=== PATIENT | female | born 1985 | race Hispanic/Latino ===

== ENCOUNTER 2018-03-02 09:11 | Day surgery (SDC) | payer OTHER ==
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
--- OUTSIDE RECORDS SUMMARY | 2018-03-02 09:14 | XMS REPORT | Summary of Care ---
:1985 Author Encounter ANNABELLE Greer(RADHA) [id number] Date(s): 08/07/14 - 08/08/14 [facility] [address] [address] [address]- Discharge Diagnosis: Abdominal pain Discharge Diagnosis: Rectal bleeding Discharge Diagnosis: Constipation Discharge Disposition: Home Physician Attending: Fidel Graff DO Vital Signs Most recent to oldest [Reference Range]: 1 2 Height 149.86 cm (08/07/14 8:00 PM) Temperature Oral [96.4-99.1 DegF] 99.0 DegF (08/07/14 8:00 PM) Blood Pressure [90-140/60-90 mmHg] 129/82 mmHg 152/94 mmHg (08/07/14 11:07 PM) *HI* (08/07/14 8:00 PM) Respiratory Rate [14-20 BRMIN] 18 BRMIN 18 BRMIN (08/07/14 11:07 PM) (08/07/14 8:00 PM) Peripheral Pulse Rate [60-100 bpm] 84 bpm 93 bpm (08/07/14 11:07 PM) (08/07/14 8:00 PM) Weight 55.909 kg (08/07/14 8:00 PM) Body Mass Index 24.89 m2 (08/07/14 8:00 PM) Problem List Condition Effective Dates Status Health Status Informant Constipation(Confirmed) Resolved Allergies, Adverse Reactions, Alerts Substance Reaction Severity Status NKDA Active Medications Colace 100 mg oral capsule 100 mg=1 cap, PO, BID, PRN Constipation, # 20 cap, 0 Refill(s) Start Date: 08/08/14 Status: Ordereddocusate 283 mg rectal enema 283 mg=1 ea, [place], Bedtime, # 1 box, 0 Refill(s) Start Date: 08/08/14 Status: OrderedDulcolax Laxative 5 mg, PO, Daily, 0 Refill(s) Start Date: 08/07/14 Status: Orderedmagnesium citrate 300 mL, Route: PO, Dosing Weight 55.909, kg, ONCE, Start date: 08/07/14 21:35:00 , Stop date: 08/07/14 21:35:00 Start Date: 08/07/14 Stop Date: 08/07/14 Status: Completedmagnesium citrate 8.85% oral liquid 8.725 vk=657 ml, PO, ONCE, # 300 ml, 0 Refill(s) Start Date: 08/08/14 Status: OrderedMetamucil PO, 0 Refill(s) Start Date: 08/07/14 Status: OrderedSaline Flush 0.9% 10 mL, Route: IVP, Drug Form: INJ, Dosing Weight 55.909, kg, PRN, PRN Line Flush , Start date: 08/08/14 0:29:00, Duration: 30 day, Stop date: 09/07/14 0:28:00 Notes: (Same as: BD Posiflush) Start Date: 08/08/14 Stop Date: 08/08/14 Status: Discontinued Results ELECTROLYTES Most recent to oldest [Reference Range]: 1 Sodium Lvl [135-145 mEq/L] 143 mEq/L (08/08/14 12:49 AM) Potassium Lvl [3.5-5.1 mEq/L] 3.4 mEq/L *LOW* (08/08/14 12:49 AM) Chloride Lvl [95-109 mEq/L] 107 mEq/L (08/08/14 12:49 AM) CO2 [24-32 mEq/L] 26 mEq/L (08/08/14 12:49 AM) AGAP [10.0-20.0 mEq/L] 13.4 mEq/L (08/08/14 12:49 AM) CHEM PANEL Most recent to oldest [Reference Range]: 1 Creatinine Lvl [0.5-1.4 mg/dL] 0.7 mg/dL (08/08/14 12:49 AM) eGFR 116 mL/min/1.73m2 1 *NA* (08/08/14 12:49 AM) BUN [7-22 mg/dL] 10 mg/dL (08/08/14 12:49 AM) B/C Ratio [6-25] 14 (08/08/14 12:49 AM) Glucose Lvl [70-99 mg/dL] 102 mg/dL 2 *HI* (08/08/14 12:49 AM) Total Protein [6.4-8.4 g/dL] 7.9 g/dL (08/08/14 12:49 AM) Albumin Lvl [3.5-5.0 g/dL] 4.2 g/dL (08/08/14 12:49 AM) Globulin [2.0-4.0 g/dL] 3.7 g/dL (08/08/14 12:49 AM) A/G Ratio [0.7-1.6] 1.1 (08/08/14 12:49 AM) Calcium Lvl [8.5-10.5 mg/dL] 8.8 mg/dL (08/08/14 12:49 AM) ALT [0-65 unit/L] 10 unit/L (08/08/14 12:49 AM) AST [0-37 unit/L] 13 unit/L (08/08/14 12:49 AM) Alk Phos [39-136 unit/L] 55 unit/L (08/08/14 12:49 AM) Bili Total [0.2-1.3 mg/dL] 0.4 mg/dL (08/08/14 12:49 AM) Lipase Lvl [73-393 unit/L] 121 unit/L (08/08/14 12:49 AM) 1Result Comment: The eGFR is calculated using the CKD-EPI formula. In most young , healthy individualsthe eGFR will be >90 mL/min/1.73m2. The eGFR declines with age. An eGFR of 60-89 may be normal in some populations, particularly the elderly, for whom the CKD-EPI formula has not been extensively validated. Use of the eGFR is not recommended in the following populations: Individuals with unstable creatinine concentrations, including patients and those with serious co-morbid conditions. Patients with extremes in muscle mass or diet. The data above are obtained from the National Kidney Disease Education Program ( NKDEP) which additionally recommends that when the eGFR is used in patients with extremes of body mass index for purposesof drug dosing, the eGFR should be multiplied by the estimated BMI.2Interpretive Data: Adult reference range values reflect the clinical guidelines of the [place] [employer].ENDOCRINOLOGY Most recent to oldest [Reference Range]: 1 S Preg [Negative] Negative *NA* (08/08/14 12:49 AM) URINE CHEM Most recent to oldest [Reference Range]: 1 U Preg [Negative] Negative (08/07/14 10:15 PM) URINE AND STOOL Most recent to oldest [Reference Range]: 1 UA Turbidity [Clear] Clear (08/07/14 10:15 PM) UA Color [Yellow] Yellow *NA* (08/07/14 10:15 PM) UA pH [5.0-8.0] 7.0 (08/07/14 10:15 PM) UA Spec Grav [<=1.030] 1.015 (08/07/14 10:15 PM) UA Glucose [Negative] Negative (08/07/14 10:15 PM) UA Blood [Negative] Trace *ABN* (08/07/14 10:15 PM) UA Ketones [Negative] Negative *NA* (08/07/14 10:15 PM) UA Protein [Negative] Negative (08/07/14 10:15 PM) UA Urobilinogen [0.1-1.0 EU/dL] 0.2 EU/dL (08/07/14 10:15 PM) UA Bili [Negative] Negative *NA* (08/07/14 10:15 PM) UA Leuk Est [Negative] Negative (08/07/14 10:15 PM) UA Nitrite [Negative] Negative (08/07/14 10:15 PM) UA WBC [None Seen /HPF] 0-2 /HPF (08/07/14 10:15 PM) UA RBC [0-2 /HPF] 0-2 /HPF (08/07/14 10:15 PM) UA Bacteria [None Seen /HPF] Occasional /HPF (08/07/14 10:15 PM) UA Sq Epi [Few /LPF] Occasional /LPF (08/07/14 10:15 PM) UA Amorph Zohra [None Seen /HPF] Few /HPF *ABN* (08/07/14 10:15 PM) HEMATOLOGY Most recent to oldest [Reference Range]: 1 WBC [3.7-10.4 K/CMM] 10.3 K/CMM (08/08/14 12:49 AM) RBC [4.20-5.40 M/CMM] 4.47 M/CMM (08/08/14 12:49 AM) Hgb [12.0-16.0 g/dL] 12.9 g/dL (08/08/14 12:49 AM) Hct [36.0-48.0 %] 39.3 % (08/08/14 12:49 AM) MCV [80.0-98.0 fL] 87.9 fL (08/08/14 12:49 AM) MCH [27.0-31.0 pg] 29.0 pg (08/08/14 12:49 AM) MCHC [32.0-36.0 g/dL] 33.0 g/dL (08/08/14 12:49 AM) RDW [11.5-14.5 %] 14.8 % *HI* (08/08/14 12:49 AM) Platelet [133-450 K/CMM] 240 K/CMM (08/08/14 12:49 AM) MPV [7.4-10.4 fL] 8.1 fL (08/08/14 12:49 AM) Segs [45.0-75.0 %] 62.8 % (08/08/14 12:49 AM) Lymphocytes [20.0-40.0 %] 29.1 % (08/08/14 12:49 AM) Monocytes [2.0-12.0 %] 7.3 % (08/08/14 12:49 AM) Eosinophils [0.0-4.0 %] 0.5 % (08/08/14 12:49 AM) Basophils [0.0-1.0 %] 0.3 % (08/08/14 12:49 AM) Segs-Bands # [1.5-8.1 K/CMM] 6.4 K/CMM (08/08/14 12:49 AM) Lymphocytes # [1.0-5.5 K/CMM] 3.0 K/CMM (08/08/14 12:49 AM) Monocytes # [0.0-0.8 K/CMM] 0.7 K/CMM (5/15/15 12:49 AM) Eosinophils # [0.0-0.5 K/CMM] 0.0 K/CMM (08/08/14 12:49 AM) Basophils # [0.0-0.2 K/CMM] 0.0 K/CMM (08/08/14 12:49 AM) Immunizations No data available for this section Procedures Procedure Date Related Diagnosis Body Site Ablation section Rhinoplasty Social History Social History Type Response Smoking Status Current some day smoker; Type: Cigarettes; Lives with someone who smokes; Cigarette Smoking Last 365 Days Yes; Reg Smoking Cessation Counseling No Assessment and Plan No data available for this section
[2018-03-02] MEDS ORDERED: Ringers Lactate 1,000 ML IV ONE ×2 (10:32→13:51)
[2018-03-02] MEDS ORDERED: CEFAZOLIN 1GM (PREMIX IV) 1 GM/50 ML BAG ONE (10:32)
[2018-03-02] MEDS ORDERED: PROPOFOL 200 MG/20 ML VIAL IV ONE ×2 (11:30→15:20)
[2018-03-02] MEDS ORDERED: ROCURONIUM 50 MG/5 ML VIAL IV ONE (11:31)
[2018-03-02] MEDS ORDERED: DEXAMETHASONE 10 MG/ML VIAL ONE (11:32)
[2018-03-02] MEDS ORDERED: GLYCOPYRROLATE 0.2 MG/ML SYR ONE (11:32)
[2018-03-02] MEDS ORDERED: FENTANYL CITR 250 MCG/5 ML ONE (11:33)
[2018-03-02] MEDS ORDERED: LIDOCAINE 2% MPF 5 ML VIAL ONE (11:33)
[2018-03-02] MEDS ORDERED: ONDANSETRON HCL 40 MG/20 ML VIAL ONE ×2 (11:34→15:16)
[2018-03-02] MEDS ORDERED: NEOSTIGMINE 1 MG/ML -5 ML SYRINGE ONE (11:34)
[2018-03-02] MEDS ORDERED: MIDAZOLAM HCL 2 MG/2 ML INJ ONE ×2 (11:36→16:15)
[2018-03-02] MEDS ORDERED: EPINEPHRINE/PF 1 MG/ML AMP ONE (11:41)
[2018-03-02] MEDS ORDERED: NA CHLORIDE 0.9% 1,000 ML ONE (11:41)
[2018-03-02] MEDS ORDERED: FENTANYL CITR 100 MCG/2 ML ONE ×2 (13:01→15:54)
[2018-03-02] MEDS ORDERED: DIPHENHYDRAMINE 50 MG/ML VIAL ONE (13:01)
[2018-03-02] MEDS ORDERED: KETOROLAC 30 MG/ML INJ ONE (15:02)
[2018-03-02] MEDS: FENTANYL CITR 100 MCG/2 ML ONE ×4 (15:32→15:55)
[2018-03-02] MEDS ORDERED: MEPERIDINE HCL 50 MG/ML AMP IM PRN (15:51)
[2018-03-02] MEDS: D5LR 1,000 ML IV SCH (16:48)
[2018-03-02] MEDS: CYCLOBENZAPRINE 10 MG TAB PO PRN (18:13)
[2018-03-02] MEDS: CEFAZOLIN 500 MG in NA CHLORIDE 0.9% 50 ML IV SCH (18:13)
[2018-03-02] MEDS: MEPERIDINE HCL 50 MG/ML AMP IM PRN (20:27)
[2018-03-03] MEDS: CEFAZOLIN 500 MG in NA CHLORIDE 0.9% 50 ML IV SCH ×3 (00:26→12:22)
[2018-03-03] MEDS: MEPERIDINE HCL 50 MG/ML AMP IM PRN ×2 (00:27→04:44)
[2018-03-03] MEDS: ONDANSETRON 4 MG/2 ML VIAL IV PRN ×2 (00:27→09:39)
[2018-03-03] MEDS: D5LR 1,000 ML IV SCH ×2 (02:37→12:00)
--- NOTE | 2018-03-03 02:57 | HP ---
Date of Admission: 03/02/2018 A 33-year-old white female who requests tummy tuck and liposuction for lipodystrophy of the medial thighs. She has previous history of breast lift and . Does smoke, does drink. No allergies. She is 4 feet 10 inches. She has medial thigh lipodystrophy and has abdominal lipodystrophy. Status post with a scar from the . Assessment: Lipodystrophy of the abdomen, thighs. Plan: Liposuction of the thighs, abdominoplasty with mesh reinforcements. MEGHA/ISAAK Voice ID: [id number] ALANA
[2018-03-03] MEDS: CYCLOBENZAPRINE 10 MG TAB PO PRN (08:12)
[2018-03-03] MEDS ORDERED: MEPERIDINE HCL 50 MG/ML AMP IM PRN (08:53)
[2018-03-03] MEDS ORDERED: DOCUSATE NA 100 MG CAP PO PRN (08:54)
[2018-03-03] MEDS ORDERED: INFLUENZA VACCINE (for 3y+) 0.5 ML DOSE IMVAC ONE (09:00)
--- NOTE | 2018-03-03 13:51 | DS ---
This is a 32-year-old white female, who requests a tummy tuck and liposuction of middle thighs. She has a history of previous breast lift. Social History: She does smoke and does drink. Allergies: NO ALLERGIES. Physical Examination: Vital Signs: She is 4 feet and 11 inches, 135 pounds. She has lipodystrophy medial thighs and excess amount of fat and skin. She underwent surgery, at which time abdominoplasty was performed with mesh reinforcement and liposuction. Approximately 400 g of each medial thigh, approximately 980 g of the abdominal wall. Postop course was unremarkable and she will be discharged to home on Vicodin 1 tab p.o. q.4 hours p.r.n. pain, Keflex 500 q.6, Flexeril 10 p.o. q.6. She will return to office following Monday at 3 o'clock at the [email or web address] office. Condition on discharge, good. JAKY Voice ID: [id number] Report ID: [id number] ALANA
--- NOTE | 2018-03-05 09:08 | OP ---
Surgeon: Aurelio Barber MD [employer]: Rocky. Preoperative Diagnosis: Lipodystrophy of abdomen and flanks. Postoperative Diagnosis: Lipodystrophy of abdomen and flanks. Procedure Performed: Liposuction of abdomen and flanks . Abdominoplasty with mesh reinforcement. Anesthesia: General. Description Of Procedure: After satisfactory induction of general Anesthesia,the patient was prepped with DuraPrep, dry sterile drapes were applied in the usual manner. A 15 blade was used to make incision about 8 cm cephalad to the medial knee. A 2 mm cannula was introduced and infusion of 400 cc epinephrine with normal saline. Left side done in an identical manner. The liposuction was performed with 3 mm cannula. The wounds were closed with 4- 0 PDS, tincture of benzoin, Steri-Strips. Attention was turned to the abdomen and was prepped with DuraPrep, dry sterile drapes applied in the usual manner. A felt-tip marking pen was used to outline a curvilinear incision. Scalpel was used to make a skin incision. Then the flaps elevated towards the costal margin and sternum . Patient underwent bilateral lateral plication using #1 prolene running from the costal margin down towards the anterior iliac spine, 7 cm on either side. __ After this was done, approximately 1-1/2 to 2 cm on either side of midline was plicated with interrupted 0 Prolene [id number] sutures. After this was done, a piece of mesh was used to outline reinforcement , sewn with running #1 Prolene from anterior iliac spine to pubic tubercle the opposite anterior iliac spine to pubic tubercal then the flanks down to the anterior iliac spine. Incision was made in the mesh for the umbilicus hernia through and then the excess skin was cut off. ELY drains brought out laterally sewn in place with 2-0 silk. Patient umbilicus was closed with a 3-0 Vicryl was used for quilting stitches, umbilicus was sewn with 4-0 Prolene interrupted and the wound was closed with 3-0 PDS running subcuticular from lateral to medial tied in the midline. Dressings consisted of tincture of benzoin, Steri- Strips, 4 x 4's, and tapes and liposuction garment was applied. Patient tolerated the procedure well and returned to recovery room. MEGHA/ISAAK Voice ID: [id number] Report ID: [id number] ALANA
== END 2018-03-03 13:00 | disposition home or self-care (01) ==
LOC: OR 09:11 → 2ND 15:36 → OR 03-03 13:00
PROVIDERS: ATTEND Specialist
PROC: 0J0L3ZZ Alteration of Right Upper Leg Subcutaneous Tissue and Fascia, Percutaneous Approach (ICD-10-PCS; 2018-03-02)
PROC: 0JU80JZ Supplement of Abdomen Subcutaneous Tissue and Fascia with Synthetic Substitute, Open Approach (ICD-10-PCS; 2018-03-02)
PROC: 0J080ZZ Alteration of Abdomen Subcutaneous Tissue and Fascia, Open Approach (ICD-10-PCS; principal; 2018-03-02 10:15)
PROC: 0J0M3ZZ Alteration of Left Upper Leg Subcutaneous Tissue and Fascia, Percutaneous Approach (ICD-10-PCS; 2018-03-02 10:15)
DX: L98.7 Excessive and redundant skin and subcutaneous tissue (principal); E88.1 Lipodystrophy, not elsewhere classified; F17.200 Nicotine dependence, unspecified, uncomplicated
CPT/HCPCS: 81025; J0171; J0690; J1100; J2175; J2250; J2405; J2704; J2710; J3010; J7030